=== PATIENT | male | born 1990 | race Caucasian/White ===

== ENCOUNTER 2016-12-19 11:47 | Emergency (ER) | payer OTHER ==
[2016-12-19 12:05] VITALS: BP 141/77
--- NOTE | 2016-12-19 12:32 | XRay Report ---
LEFT HAND RADIOGRAPHS INDICATION: Left hand injury, pain. Evaluate for fracture. COMPARISON: None similar at this institution. FINDINGS: AP, lateral and oblique left hand radiographs demonstrate intact bones and joints. Mild diffuse soft tissue swelling along dorsum of the hand though noted. CONCLUSION: Left hand soft tissue swelling/injury without acute displaced fracture identified, as described. Please correlate. Thank you for the opportunity to participate in this patient's care.
--- NOTE | 2016-12-19 13:12 | Emergency Department Report ---
Upper Extremity - [facility] Chief Complaint: Extremity Injury, Upper Stated Complaint: LFT THUMB INJURY Time Seen by Provider: 12/19/16 13:11 ED Review of Systems ROS: Stated complaint: LFT THUMB INJURY Other details as noted in HPI ED Past Medical Hx - Past Medical History Previous Medical History?: No - Surgical History Past Surgical History?: No - Social History Smoking Status: Never Smoker Substance Use Type: None Upper Extremity Exam - Exam General: Vital signs noted. No distress. Alert and acting appropriately. ED Course Vital Signs 12/19/16 12:03 Temperature 97.9 F Pulse Rate 65 Respiratory 18 Rate Blood Pressure 141/77 O2 Sat by Pulse 98 Oximetry Critical care attestation.: If time is entered above; I have spent that time in minutes in the direct care of this critically ill patient, excluding procedure time. ED Disposition Condition: Stable
--- NOTE | 2016-12-19 13:55 | Emergency Department Report ---
Upper Extremity - HPI Chief Complaint: Extremity Injury, Lower Stated Complaint: LFT THUMB INJURY Time Seen by Provider: 12/19/16 13:11 Upper Extremity: Left Thumb (Patient states he fell down stairs 3 days ago and left thumb was dislocated) Occurred When: 3 Days Mechanism: Fall Severity: mild Symptoms: Yes Pain with Movement, Yes Limited Range of Movement, Yes Swelling, Yes Bruising/Ecchymosis, No Deformity, No Numbness, No Weakness, No Laceration or Abrasion ED Review of Systems ROS: Stated complaint: LFT THUMB INJURY Other details as noted in HPI Constitutional: denies: chills, fever Eyes: denies: eye pain, eye discharge, vision change ENT: denies: ear pain, throat pain Respiratory: denies: cough, shortness of breath, wheezing Cardiovascular: denies: chest pain, palpitations Endocrine: no symptoms reported Gastrointestinal: denies: abdominal pain, nausea, diarrhea Genitourinary: denies: urgency, dysuria Musculoskeletal: joint swelling. denies: back pain, arthralgia Skin: denies: rash, lesions Neurological: denies: headache, weakness, paresthesias Psychiatric: denies: anxiety, depression Hematological/Lymphatic: denies: easy bleeding, easy bruising ED Past Medical Hx - Past Medical History Previous Medical History?: No - Surgical History Past Surgical History?: No - Social History Smoking Status: Never Smoker Substance Use Type: None - Medications Home Medications: Home Medications Medication Instructions Recorded Confirmed Last Taken Type Cyclobenzaprine [Flexeril] 10 mg PO TID PRN #15 tablet 12/19/16 Unknown Rx Ketorolac [Toradol] 10 mg PO Q6H PRN #12 tablet 12/19/16 Unknown Rx Upper Extremity Exam - Exam General: Vital signs noted. No distress. Alert and acting appropriately. Head and Torso: No HEENT Abnormality, No Neck Tenderness, No Chest/Lungs Abnormality, No Abdominal Tenderness, No Back Tenderness Shoulder Exam: Yes Normal Range of Motion in Shoulder, No Shoulder Tenderness, No Clavicle Tenderness, No Shoulder Deformity, No AC Joint Tenderness Arm Exam: No Arm/Humerus Tenderness, No Arm Deformity Elbow: Yes Normal Range of Motion in Elbow, No Elbow Tenderness, No Elbow Deformity Forearm: No Forearm Tenderness, No Forearm Deformity, No Pain with Pronation, No Pain with Supination Wrist: Yes Normal ROM in Wrist, No Wrist Tenderness, No Wrist Deformity, No Snuffbox Tenderness, No Pain with Axial Thumb Compression Hand: Yes Hand Tenderness, Yes Digit Tenderness, No Hand Deformity, No Normal ROM in Digit(s) (ROM limited by pain), No Digit(s) Deformity, No Tendon Dysfunction CMS Exam: Yes Normal Distal Pulses, Yes Normal Capillary Refill, Yes Normal Distal Sensation, No Broken Skin ED Course Vital Signs 12/19/16 12:03 Temperature 97.9 F Pulse Rate 65 Respiratory 18 Rate Blood Pressure 141/77 O2 Sat by Pulse 98 Oximetry ED Medical Decision Making - Radiology Data Radiology results: report reviewed XR hand Left: Left hand soft tissue swelling/injury without acute displaced fracture identified. Mild diffuse soft tissue swelling along dorsum of the hand noted. - Medical Decision Making 25 year old male presents to ED after falling down stairs on Monday (3 days ago) . Patient states he fell on his left hand and first digit was supposedly dislocated. patient states his friend popped his finger back into place on Monday. patient states he still has pain and swelling in left hand but has not taken any medications at home. Patient is stable, neurologically intact and in no acute distress. Patient denies LOC, trauma to head, or pain to wrist, elbow, humerus, shoulder. Critical care attestation.: If time is entered above; I have spent that time in minutes in the direct care of this critically ill patient, excluding procedure time. ED Disposition Clinical Impression: Contusion of left hand including fingers Qualifiers: Encounter type: initial encounter Qualified Code(s): S60.222A - Contusion of left hand, initial encounter Disposition: DISCHARGED TO HOME OR SELFCARE Is pt being admited?: No Does the pt Need Aspirin: No Condition: Stable Instructions: Hand Sprain (ED) Additional Instructions: Please return to ED if pain or swelling worsens or seek evaluation from hand specialists/orthopedic clinic at [facility] [phone]. Prescriptions: Cyclobenzaprine [Flexeril] 10 mg PO TID PRN #15 tablet PRN Reason: Muscle Spasm Ketorolac [Toradol] 10 mg PO Q6H PRN #12 tablet PRN Reason: Pain Referrals: BEREKET ARITA MD [Primary Care Provider] - 2-3 Days ALLISON ALVAREZ MD [Staff Physician] - 3-5 Days Forms: Work/School Release Form(ED)
[2016-12-19] MEDS ORDERED: TORADOL IM ONE (14:00)
== END 2016-12-19 14:20 | disposition home or self-care (01) ==
LOC: ED 11:47
DX: S60.222A Contusion of left hand, initial encounter (principal); W10.8XXA Fall (on) (from) other stairs and steps, initial encounter; Y93.89 Activity, other specified; Y99.8 Other external cause status; Y92.89 Other specified places as the place of occurrence of the external cause
CPT/HCPCS: 96372; J1885